=== PATIENT | male | born 1945 | race Caucasian/White ===

== ENCOUNTER 2023-10-23 09:17 | Outpatient (CLI) | payer OTHER, SELFPAY ==
--- NOTE | 2023-10-23 | CA_ITS ---
APPROVED REPORT EXAM: Comprehensive 2D, Doppler, and color-flow Echocardiogram [employer] Associate: Florina Allen CRT Ht: 5 ft 11 in Wt: 241lbs BSA: 2.28 BP: 138/70 mmHg Indications: Diabetes, CAD, Hypertension/HDD 2D Dimensions LA Volume 65.10 mL LA Volume Index 28.55 mL/m2 (M/F) 16-34 M-Mode Dimensions RVDd 2.84 cm (0.9-2.6) LA Diam 4.33 cm (1.9-4.0) LVDd 5.93 cm (3.5-5.7) LVDs 3.44 cm (3.5-5.7) IVSd 1.99 cm (0.6-1.1) PWd 1.36 cm (0.6-1.1) EF (Teich) 72.10% FS 42.00% EDV (Teich) 175.20 mL TAPSE 2.42 (<1.7) ESV (Teich) 48.80 mL LV Diastology E Decel Time 257 (160-240 msec) E/A Ratio 0.74 MED A' 8.90 cm/s LAT A' 10.00 cm/s Aortic Valve AI PHT 563.00 ms AO Peak GR. 8.50 mmHg Mitral Valve MV A Velocity 80.0 (40-130 cm/s) E/A Ratio 0.74 Pulmonary Valve PV Peak Velocity 102.0 (50-150 cm/s) Tricuspid Valve TR P. Velocity 144.00 cm/s RAP Estimate 10.00 mmHg RVSP 18.30 mmHg Left Ventricle The left ventricle is normal size. The left ventricular systolic function is low normal. There is increased LV wall thickness. The septum is asynchronous. Diastolic function is indeterminate. LVEF is 50%. Right Ventricle Right ventricle is mildly dilated. The right ventricular systolic function is normal. Atria The left atrium is mildly dilated. Right atrium is mildly dilated. A possible echodensity is noted at the roof of the right atrium, of unclear significance. This may reflect artifact or normal variant, but true echodensity cannot be entirely ruled as this was noted in multiple views. There is no Doppler evidence of interatrial shunt. Aortic Valve The aortic valve is mildly thickened. There is no aortic valvular stenosis. Mild aortic regurgitation. Mitral Valve The mitral valve is normal in structure. No evidence of mitral valve stenosis. Trace mitral regurgitation. Tricuspid Valve The tricuspid valve leaflets are thin and pliable. Trace tricuspid regurgitation. There is insufficient TR jet to estimate RVSP. Pulmonic Valve The pulmonary valve is normal in structure. Trace pulmonic regurgitation. Great Vessels The aortic root is normal in size. The ascending aorta is not well-visualized. The IVC is not well-visualized. Pericardium There is no pericardial effusion. Other Information Study Quality: Fair Conclusion Low normal LV systolic function. Mildly dilated RV with normal RV function. Mild AI. Possible echodensity is noted at the roof of the right atrium, of unclear significance. This may reflect artifact or normal variant, but true echodensity cannot be entirely ruled as this was noted in multiple views. Further evaluation to rule out RA mass is recommended with cardiac MRI (mass protocol, specify: RA mass). Electronically signed by : Alona Recinos MD 10/29/2023 00:19:55
[2023-10-23 10:01] LABS: Microscopic, Urine URINE MICROSCOPIC (MICROSCOPIC)
[2023-10-23 10:30] LABS: Appearance,Urine CLEAR (Clear); Bilirubin,Urine Negative (Negative); Blood, Urine TRACE-I (Negative); Color,Urine YELLOW (Yellow); Glucose,Urine (UA) 3+ (Negative); Ketones,Urine Negative (Negative); Leukocyte Esterase,Urine Negative (Negative); Nitrate,Urine Negative (Negative); PH,Urine 5.5 (5.0-8.5); Protein,Urine Negative (Negative); Urobilinogen,Urine 0.2 EU/dl (0.2)
[2023-10-23 11:12] LABS: Bacteria,Urine Trace /lpf; RBC,Urine Occasional #/hpf (0-3)
[2023-10-23 11:14] LABS: Alanine Aminotransferase 43 U/L (12-78); Albumin Level 3.8 g/dl (3.5-5.0); Alkaline Phosphatase 221 U/L (38-126); Anion Gap 12.6 mEq/L (5-15); Aspartate Amino Transferase 62 U/L (17-59); Bilirubin,Total 1.2 mg/dl (0.2-1.3); Blood Urea Nitrogen 34 mg/dl (9-20); Calcium 9.8 mg/dl (8.4-10.2); Carbon Dioxide 29 mmol/L (22.0-30.0); Chloride 104 mmol/L (98-107); Estimated Glomerular Filt Rate 54 ml/min (>60); GFR (African American) 65 ML/MIN (>60); Globulin 3.8 g/dL (1.3-3.2); Glucose 140 mg/dl (74-100); Potassium 4.6 mmoL/L (3.5-5.1); Sodium 141 mmol/L (136-145); Total Protein,Serum 7.6 g/dl (6.3-8.2)
== END 2023-10-23 23:59 | disposition home or self-care (01) ==
LOC: RT 09:19
PROVIDERS: PCP Family Medicine; Visit Provider Chiropractor
DX: I24.89 Other forms of acute ischemic heart disease (principal); E11.9 Type 2 diabetes mellitus without complications; B96.89 Other specified bacterial agents as the cause of diseases classified elsewhere; Z79.4 Long term (current) use of insulin
CPT/HCPCS: 36415; 80053; 81001; 87086; 87088; 87186; 93306

== ENCOUNTER 2024-02-16 08:11 | Outpatient (CLI) | payer OTHER, SELFPAY ==
[2024-02-16 08:22] LABS: Microscopic, Urine URINE MICROSCOPIC (MICROSCOPIC)
[2024-02-16 08:49] LABS: Appearance,Urine CLEAR (Clear); Bilirubin,Urine Negative (Negative); Blood, Urine Negative (Negative); Color,Urine YELLOW (Yellow); Glucose,Urine (UA) 3+ (Negative); Ketones,Urine Negative (Negative); Leukocyte Esterase,Urine Negative (Negative); Nitrate,Urine Negative (Negative); Protein,Urine TRACE (Negative); Specific Gravity, Urine >= 1.030 (1.005-1.030); Urobilinogen,Urine 0.2 EU/dl (0.2)
[2024-02-16 09:06] LABS: Bacteria,Urine Trace /lpf; Squamous Epithelial Cell,Urine Occasional #/hpf (0-5)
[2024-02-16 09:42] LABS: Chloride 111 mmol/L (98-107)
[2024-02-16 09:43] LABS: Albumin Level 3.8 g/dl (3.5-5.0); Potassium 4.1 mmoL/L (3.5-5.1); Sodium 140 mmol/L (136-145)
[2024-02-16 09:45] LABS: Blood Urea Nitrogen 27 mg/dl (9-20); Estimated Glomerular Filt Rate 59 ml/min (>60); GFR (African American) 71 ML/MIN (>60)
[2024-02-16 09:46] LABS: Alanine Aminotransferase 35 U/L (12-78); Albumin/Globulin Ratio 1.1 (1.1-1.8); Alkaline Phosphatase 177 U/L (38-126); Anion Gap 8.1 mEq/L (5-15); Aspartate Amino Transferase 44 U/L (17-59); Bilirubin,Total 1.5 mg/dl (0.2-1.3); Calcium 9.4 mg/dl (8.4-10.2); Carbon Dioxide 25 mmol/L (22.0-30.0); Globulin 3.5 g/dL (1.3-3.2); Glucose 101 mg/dl (74-100); Total Protein,Serum 7.3 g/dl (6.3-8.2)
[2024-02-16 10:04] LABS: Free T4 (Free Thyroxine) 1.13 ng/dl (0.78-2.19)
[2024-02-16 10:18] LABS: Thyroid Stimulating Hormone 5.48 uIU/mL (0.465-4.68)
[2024-02-17 11:15] LABS: Triiodothyronine (T3) Free 2.7 pg/mL (2.0-4.4)
== END 2024-02-16 23:59 | disposition home or self-care (01) ==
LOC: LAB 08:12
PROVIDERS: PCP Family Medicine; Visit Provider Chiropractor
DX: N18.9 Chronic kidney disease, unspecified (principal); E04.9 Nontoxic goiter, unspecified
CPT/HCPCS: 36415; 80053; 81001; 84439; 84443; 84481